=== PATIENT | female | born 1990 | race Caucasian/White ===

== ENCOUNTER 2018-09-21 20:36 | Emergency (ER) | payer OTHER | END 2018-09-22 05:47 | disposition left against medical advice (07) | LOC: FTE 09-22 05:47 | DX: S60.511A Abrasion of right hand, initial encounter (principal); S80.811A Abrasion, right lower leg, initial encounter; W25.XXXA Contact with sharp glass, initial encounter; Y92.9 Unspecified place or not applicable | CPT/HCPCS: 73130; 73130-RT; 99283-25 ==